=== PATIENT | female | born 1995 | race Caucasian/White ===

== ENCOUNTER 2022-06-05 01:50 | Emergency (ER) | payer MEDICAID ==
[~2022-06-05] VITALS: Ht 165.1 cm; Wt 79.4 kg
[2022-06-05 02:02] VITALS: BP 84/34
--- NOTE | 2022-06-05 02:30 | NUR ---
Labs collected sent to lab
--- NOTE | 2022-06-05 02:30 | NUR ---
MD Mcgraw at bedside examining pt.
--- NOTE | 2022-06-05 02:30 | NUR ---
c/o vaginal bleeding since 1800. per pt soaks 3 pads every 30 minutes. pt noted diaphoretic, and weak. states episode of syncope x 2.
--- NOTE | 2022-06-05 02:40 | NUR ---
Assisted ER Dr Mcgraw for vaginal exam. Heavy amount of bleeding and several clots removed. Pt tolerated procedure well.
[2022-06-05 03:02] LABS: ALBUMIN 3.5 g/dL (3.4-5.0); ANION GAP 11.7 (8-16); CARBON DIOXIDE 25.4 mmol/L (21-32); CREATININE 1.2 mg/dL (0.6-1.3); POTASSIUM 3.1 mmol/L (3.5-5.1); TOTAL BILIRUBIN 0.2 mg/dL (0.0-1.0)
[2022-06-05] MEDS ORDERED: NACL 0.9% 1,000 ML IV ONE (03:05)
[2022-06-05 03:09] LABS: BASOPHILS % (AUTO) 0.3 % (0.0-2.0); EOSINOPHILS # (AUTO) 0.2 K/uL (0-0.4); EOSINOPHILS % (AUTO) 1.9 % (0.0-4.0); HEMATOCRIT 39.8 % (36-48); HEMOGLOBIN 13.4 g/dL (12.0-16.0); LYMPHOCYTES # (AUTO) 3.6 K/uL (2.5-16.5); LYMPHOCYTES % (AUTO) 28.8 % (20.5-51.1); MEAN CORPUSCULAR HEMOGLOBIN 33 pg (27-31); MEAN CORPUSCULAR HGB CONC 34 g/dL (33-37); MEAN CORPUSCULAR VOLUME 96.4 fL (80-94); MONOCYTES # (AUTO) 0.6 K/uL (0.8-1.0); MONOCYTES % (AUTO) 4.7 % (1.7-9.3); NEUTROPHILS # (AUTO) 8.1 K/uL (1.8-7.7); NEUTROPHILS % (AUTO) 64.3 % (42.2-75.2); PLATELET COUNT (AUTO) 184 K/uL (140-450); RED BLOOD CELL COUNT(AUTO) 4.13 MIL/uL (4.20-5.40); RED CELL DISTRIBUTION WIDTH 12.5 % (11.6-13.7); WHITE BLOOD COUNT (AUTO) 12.6 K/uL (4.8-10.8)
--- NOTE | 2022-06-05 03:29 | NUR ---
Swabs collected sent to lab
--- NOTE | 2022-06-05 04:16 | NUR ---
Pt unable to void at this time. Attempted x2. MD Mcgraw made aware.
[2022-06-05] MEDS ORDERED: KETOROLAC 15 MG/ML VIAL IVP ONE (04:55)
[2022-06-05] MEDS ORDERED: KETOROLAC 15 MG/ML VIAL ONE (04:57)
--- NOTE | 2022-06-05 05:06 | NUR ---
Pt medicated for pain via IV as ordered by MD Mcgraw. Tolerated well.
[2022-06-05] MEDS ORDERED: IBUP-2218 PO (05:31)
[2022-06-05 05:59] LABS: BASOPHILS % (AUTO) 0.3 % (0.0-2.0); EOSINOPHILS % (AUTO) 0.3 % (0.0-4.0); HEMATOCRIT 33.6 % (36-48); HEMOGLOBIN 11.5 g/dL (12.0-16.0); LYMPHOCYTES # (AUTO) 1.5 K/uL (2.5-16.5); LYMPHOCYTES % (AUTO) 11.4 % (20.5-51.1); MEAN CORPUSCULAR HEMOGLOBIN 33 pg (27-31); MEAN CORPUSCULAR HGB CONC 34 g/dL (33-37); MEAN CORPUSCULAR VOLUME 96.4 fL (80-94); MONOCYTES # (AUTO) 0.3 K/uL (0.8-1.0); MONOCYTES % (AUTO) 2.6 % (1.7-9.3); NEUTROPHILS # (AUTO) 11.3 K/uL (1.8-7.7); NEUTROPHILS % (AUTO) 85.4 % (42.2-75.2); PLATELET COUNT (AUTO) 159 K/uL (140-450); RED BLOOD CELL COUNT(AUTO) 3.48 MIL/uL (4.20-5.40); RED CELL DISTRIBUTION WIDTH 12.7 % (11.6-13.7); WHITE BLOOD COUNT (AUTO) 13.3 K/uL (4.8-10.8)
--- NOTE | 2022-06-05 06:58 | NUR ---
Patient discharged with v/s stable. Written and verbal after care instructions given and explained. Patient verbalized understanding. Ambulatory with steady gait. All questions addressed prior to discharge. Advised to follow up with PMD.
[2022-06-05 07:01] VITALS: BP 115/67
== END 2022-06-05 07:01 | disposition home or self-care (01) ==
LOC: MED 01:50
DX: O03.4 Incomplete spontaneous abortion without complication (principal); Z20.822 Contact with and (suspected) exposure to COVID-19; Z79.899 Other long term (current) drug therapy
CPT/HCPCS: 36415; 76817; 80053; 83605; 84702; 85025; 86886; 86900; 86901; 87040; 87426; 96361; 96374; 99291; J1885; J7030; Q0092

== ENCOUNTER 2022-06-07 19:26 | Inpatient (IN) | payer MEDICAID ==
[~2022-06-07] VITALS: Ht 165.1 cm; Wt 61.2 kg
[~2022-06-07 19:26] MED LIST: IBUP-2218 PO
[2022-06-07 19:50] VITALS: BP 113/70
--- NOTE | 2022-06-07 20:02 | NUR ---
TO BED 2 FOLLOWING TRIAGE
--- NOTE | 2022-06-07 20:30 | NUR ---
Patient BIB by family from home. C/O vaginal bleeding x 2 days. Patient reported, had vaginal bleeding since Saturday, LMP 03/01/22, ~ 3 months (per patient), Patient seen by ERMD on 06/05/22. Dx Miscarriage. Patient didn't seen by CLINICAL NURSING PROFESSOR since, Patient had heavy vaginal bleeding since.
[2022-06-07 20:31] LABS: BASOPHILS % (AUTO) 0.1 % (0.0-2.0); EOSINOPHILS # (AUTO) 0.1 K/uL (0-0.4); EOSINOPHILS % (AUTO) 0.5 % (0.0-4.0); HEMATOCRIT 30.7 % (36-48); HEMOGLOBIN 10.6 g/dL (12.0-16.0); LYMPHOCYTES # (AUTO) 1.5 K/uL (2.5-16.5); LYMPHOCYTES % (AUTO) 12.7 % (20.5-51.1); MEAN CORPUSCULAR HEMOGLOBIN 33 pg (27-31); MEAN CORPUSCULAR HGB CONC 35 g/dL (33-37); MEAN CORPUSCULAR VOLUME 95.4 fL (80-94); MONOCYTES # (AUTO) 0.5 K/uL (0.8-1.0); MONOCYTES % (AUTO) 4.1 % (1.7-9.3); NEUTROPHILS # (AUTO) 9.9 K/uL (1.8-7.7); NEUTROPHILS % (AUTO) 82.6 % (42.2-75.2); PLATELET COUNT (AUTO) 159 K/uL (140-450); RED BLOOD CELL COUNT(AUTO) 3.22 MIL/uL (4.20-5.40); RED CELL DISTRIBUTION WIDTH 12.3 % (11.6-13.7)
--- NOTE | 2022-06-07 20:42 | NUR ---
Ultrasound at bedside.
--- NOTE | 2022-06-07 21:02 | NUR ---
Patient reported, had more cramping pain, 12/25, Dr. Malloyr notified.
[2022-06-07] MEDS ORDERED: KETOROLAC 60 MG/2 ML VIAL IM ONE ×2 (21:09→21:10)
--- NOTE | 2022-06-07 21:57 | NUR ---
urine sample collected and sent to lab.
[2022-06-07 22:03] LABS: APPEARANCE,URINE CLEAR (CLEAR); BILIRUBIN,URINE NEGATIVE (NEGATIVE); BLOOD, URINE 3+ (NEGATIVE); COLOR,URINE YELLOW (YELLOW); LEUKOCYTE ESTERASE ,URINE TRACE (NEGATIVE); NITRITE, URINE POSITIVE (NEGATIVE); UGLUCOSE NEGATIVE (NEGATIVE)
--- NOTE | 2022-06-07 22:10 | NUR ---
CPVID-19 swab collected and sent to lab.
[2022-06-07 22:14] LABS: RBC,URINE TOO NUMEROUS TO COUN /HPF (0-5); WBC,URINE 0-5 /HPF (0-5)
[2022-06-07] MEDS ORDERED: NACL 0.9% 1,000 ML IV ONE (22:40)
[2022-06-07] MEDS ORDERED: cefTRIAXone 1,000 MG VIAL ONE (22:44)
--- NOTE | 2022-06-07 23:10 | NUR ---
Patient will be admitted to care of Dr. Goins. Admited to TELE. Will go to room 105A. Belongings list completed. Report to TELE.
--- NOTE | 2022-06-07 23:45 | NUR ---
PATIENT ADMITTED FROM ED, CAME VIA [place], AMBULATORY, TRANSFERS TO BED FROM [facility] WITH STEADY GAIT. PATIENT IS ALERT AND ORIENTED X4, NO SIGNS OF DISTRESS NOTED, PATIENT DENIES PAIN UPON INITIAL ASSESSMENT. PATIENT CHIEF COMPLAINT OF VAGINAL BLEEDING THAT STARTED 06/05/22, CAME TO ED, WAS SENT HOME, CAME BACK TODAY FOR VAGINAL BLEEDING, HAS DIAGNOSIS OF INCOMPLETE AND UTI. PATIENT ORIENTED TO ROOM SETTING, MRSA DONE. ALL SAFETY MEASURES IN PLACE.
--- NOTE | 2022-06-08 02:10 | NUR ---
PATIENT ASLEEP, BREATHING EVEN AND NON LABORED ON ROOM AIR, NO SIGNS OF PAIN/DISCOMFORT NOTED. CALL LIGHT WITHIN REACH.
[2022-06-08 04:00] VITALS: BP 105/55
[2022-06-08] MEDS ORDERED: PIPERACILLIN/TAZOBACTAM 3.375 GM VIAL IV ONE (04:16)
[2022-06-08] MEDS: PIPERACILLIN/TAZOBACTAM 3.375 GM in DEXTROSE 5% 50 ML IV SCH ×3 (04:21→21:28)
--- NOTE | 2022-06-08 04:21 | NUR ---
SCHEDULED IV ANTIBIOTIC GIVEN ORDERED. PATIENT DENIES PAIN UPON ASSESSMENT, NO DISTRESS NOTED, CALL LIGHT WITHIN REACH.
[2022-06-08 06:46] LABS: BASOPHILS % (AUTO) 0.1 % (0.0-2.0); EOSINOPHILS # (AUTO) 0.1 K/uL (0-0.4); EOSINOPHILS % (AUTO) 1.2 % (0.0-4.0); HEMATOCRIT 27.5 % (36-48); HEMOGLOBIN 9.5 g/dL (12.0-16.0); LYMPHOCYTES # (AUTO) 2.9 K/uL (2.5-16.5); LYMPHOCYTES % (AUTO) 28.9 % (20.5-51.1); MEAN CORPUSCULAR HEMOGLOBIN 33 pg (27-31); MEAN CORPUSCULAR HGB CONC 35 g/dL (33-37); MEAN CORPUSCULAR VOLUME 95.6 fL (80-94); MONOCYTES # (AUTO) 0.6 K/uL (0.8-1.0); NEUTROPHILS # (AUTO) 6.4 K/uL (1.8-7.7); NEUTROPHILS % (AUTO) 63.8 % (42.2-75.2); PLATELET COUNT (AUTO) 152 K/uL (140-450); RED BLOOD CELL COUNT(AUTO) 2.87 MIL/uL (4.20-5.40); RED CELL DISTRIBUTION WIDTH 12.6 % (11.6-13.7)
--- NOTE | 2022-06-08 07:17 | NUR ---
ENDORSED PATIENT TO DAY NURSE GERRY FOR CONTINUITY OF CARE. PATIENT IN STABLE CONDITION.
--- NOTE | 2022-06-08 07:20 | NUR ---
RECEIVED P;T FROM [facility] RN, PT IS AWAKE, ALERT AND ORIENTED, ON ROOM AIR, LYING ON THE BED WITH SIDE RAILS UP AND CALL LIGHT WITHIN REACH, IV LINE NOTED ON THE RIGHT FOREARM G. 20 WITH NS INFUSING AT 100ML/HR, INTACT, NO SIGN OF DISTRESS NOTED AND DENIES PAIN AT THIS TIME.
[2022-06-08 08:00] VITALS: BP 101/62
[2022-06-08 08:01] LABS: ANION GAP 13.6 (8-16); CREATININE 0.9 mg/dL (0.6-1.3); POTASSIUM 3.6 mmol/L (3.5-5.1)
--- NOTE | 2022-06-08 09:01 | NUR ---
PATIENT HAS BEEN SCREENED AND CATEGORIZED LOW NUTRITION RISK. PATIENT WILL BE SEEN WITHIN 7 DAYS OF ADMISSION. 06/14/[address] ROD PHIPPS RD
[2022-06-08] MEDS ORDERED: ACETAMINOPHEN 325 MG TAB PO PRN (09:30)
[2022-06-08] MEDS ORDERED: ONDANSETRON 4 MG/2 ML VIAL IVP PRN (09:30)
[2022-06-08] MEDS ORDERED: HYDROcodone/APAP 7.5/325 MG 1 TAB PO PRN (09:30)
[2022-06-08 10:21] LABS: BASOPHILS % (AUTO) 0.2 % (0.0-2.0); EOSINOPHILS # (AUTO) 0.1 K/uL (0-0.4); EOSINOPHILS % (AUTO) 1.2 % (0.0-4.0); HEMATOCRIT 26.2 % (36-48); LYMPHOCYTES # (AUTO) 2.2 K/uL (2.5-16.5); LYMPHOCYTES % (AUTO) 24.6 % (20.5-51.1); MEAN CORPUSCULAR HEMOGLOBIN 33 pg (27-31); MEAN CORPUSCULAR HGB CONC 35 g/dL (33-37); MEAN CORPUSCULAR VOLUME 95.7 fL (80-94); MONOCYTES # (AUTO) 0.4 K/uL (0.8-1.0); MONOCYTES % (AUTO) 5.1 % (1.7-9.3); NEUTROPHILS # (AUTO) 6.1 K/uL (1.8-7.7); NEUTROPHILS % (AUTO) 68.9 % (42.2-75.2); PLATELET COUNT (AUTO) 148 K/uL (140-450); RED BLOOD CELL COUNT(AUTO) 2.73 MIL/uL (4.20-5.40); RED CELL DISTRIBUTION WIDTH 12.7 % (11.6-13.7); WHITE BLOOD COUNT (AUTO) 8.8 K/uL (4.8-10.8)
[2022-06-08 10:44] LABS: PROTHROMBIN TIME 11.6 secs (10.8-13.4)
[2022-06-08 10:53] LABS: AMYLASE 37 U/L (25-115); CHOL/HDL RATIO 2.7 (1-4.5); FREE T4 (FREE THYROXINE) 1.04 ng/dL (0.76-1.46); HDL CHOLESTEROL 44 mg/dL (40-60); LDL (CALC) 58 mg/dL (60-100); LIPASE 90 U/L (73-393); MAGNESIUM 1.8 mg/dL (1.8-2.4); THYROID STIMULATING HORMONE 0.83 uIU/mL (0.34-3.74); TRIGLYCERIDES 76 mg/dL (30-150)
[2022-06-08 12:00] VITALS: BP 103/54
[2022-06-08 16:00] VITALS: BP 101/48
--- NOTE | 2022-06-08 19:34 | NUR ---
ENDORSED PT TO NIGHT RN FOR CONTINUITY OF CARE, PT IS STABLE AT THIS TIME.
--- NOTE | 2022-06-08 19:35 | NUR ---
RECEIVED REPORT FROM DAY SHIFT NURSE GERRY FOR CONTINUITY OF CARE. PT A/A/O, AMBULATORY, ABLE TO MAKE NEEDS KNOWN. RESPIRATIONS EVEN AND UNLABORED ON RA. ON MOTHER BABY RN. PT ON NPO. NPO SIGNS ON THE DOOR. PT AWARE. SKIN INTACT, WARM AND DRY TO TOUCH. ENDORSED THAT PT WAS SAYING INTENT OF LEAVING BECAUSE SHE HASN'T SEEN DR GIMENEZ YET, NO SHOWER AND NPO SINCE YESTERDAY. POC DISCUSSED. GAVE REPORT TO COVERING NURSE PADILLA. CALL LIGHT WITHIN REACH. SAFETY PRECAUTIONS IN PLACE.
[2022-06-08 20:00] VITALS: BP 113/58
--- NOTE | 2022-06-08 20:37 | NUR ---
FF-UP WITH AMMY IF HE WILL COME AND SEE THE PT PER PT REQUEST. PT WAS ALSO CONCERNING THAT SHE HAS BEEN ON NPO SINCE YESTERDAY MORNING. PER DR GIMENEZ HE WILL SEE THE PT SOON SHE CAN. PT MADE AWARE. PT VERBALIZED UNDERSTANDING.
[2022-06-08] MEDS ORDERED: DOCUSATE SODIUM 100 MG GELCAP PO SCH (21:00)
--- NOTE | 2022-06-08 23:25 | NUR ---
DR GIMENEZ AT BEDSIDE, CHECKED AND SEEN PT.
[2022-06-08 23:45] VITALS: BP 115/66
[2022-06-09] VITALS: BP 115/66
--- NOTE | 2022-06-09 00:40 | NUR ---
PT DISCHARGED HOME. PT WALKED TO [facility]. PICKED UP BY BF. DC PAPERS DISCUSSED WITH PT. PT VERBALIZED UNDERSTANDING. REMOVED IV CATHETER TIP INTACT. REMOVED ID WRIST BAND AND TELE MONITOR. ALL BELONGINGS TAKEN UPON DC. PT IS STABLE.
[2022-06-09] MEDS ORDERED: PANTOPRAZOLE 40 MG INJ VIAL IVP SCH (09:00)
== END 2022-06-09 00:40 | disposition home or self-care (01) | DRG 564 ==
LOC: MED 19:26 → MTU 22:40
DX: O03.9 Complete or unspecified spontaneous abortion without complication (principal); D64.9 Anemia, unspecified; Z20.822 Contact with and (suspected) exposure to COVID-19
CPT/HCPCS: 36415; 71045; 76856; 80048; 81001; 82150; 83036; 83605; 83690; 83735; 83880; 84100; 84439; 84443; 84484; 84702; 85025; 85610; 85730; 87040; 87081; 87086; 96365; 96372; 99285; J0696; J1885; J2543; J7060; Q0092

== ENCOUNTER 2022-11-21 04:20 | Inpatient (IN) | payer MEDICAID ==
[~2022-11-21] VITALS: Ht 162.6 cm; Wt 75.3 kg
[2022-11-21 04:31] VITALS: BP 115/73; PULSE 63; RESP 17; TEMP 97; O2SAT 98
[2022-11-21 05:38] LABS: APPEARANCE,URINE CLEAR (CLEAR); BILIRUBIN,URINE 1+ (NEGATIVE); BLOOD, URINE 3+ (NEGATIVE); COLOR,URINE YELLOW (YELLOW); LEUKOCYTE ESTERASE ,URINE TRACE (NEGATIVE); NITRITE, URINE POSITIVE (NEGATIVE); PH,URINE 6.5 (5.0-9.0); PROTEIN,URINE 3+ (NEGATIVE); UGLUCOSE TRACE (NEGATIVE); UROBILINOGEN,URINE 0.2 EU/dL (0.2 - 1)
[2022-11-21 05:40] LABS: BASOPHILS % (AUTO) 0.5 % (0.0-2.0); EOSINOPHILS # (AUTO) 0.1 K/uL (0-0.4); EOSINOPHILS % (AUTO) 1.6 % (0.0-4.0); HEMATOCRIT 36.1 % (36-48); HEMOGLOBIN 11.9 g/dL (12.0-16.0); LYMPHOCYTES # (AUTO) 1.7 K/uL (2.5-16.5); LYMPHOCYTES % (AUTO) 19.6 % (20.5-51.1); MEAN CORPUSCULAR HEMOGLOBIN 27 pg (27-31); MEAN CORPUSCULAR HGB CONC 33 g/dL (33-37); MEAN CORPUSCULAR VOLUME 81.1 fL (80-94); MONOCYTES # (AUTO) 0.4 K/uL (0.8-1.0); MONOCYTES % (AUTO) 4.4 % (1.7-9.3); NEUTROPHILS # (AUTO) 6.5 K/uL (1.8-7.7); NEUTROPHILS % (AUTO) 73.9 % (42.2-75.2); PLATELET COUNT (AUTO) 216 K/uL (140-450); RED BLOOD CELL COUNT(AUTO) 4.46 MIL/uL (4.20-5.40); RED CELL DISTRIBUTION WIDTH 21.9 % (11.6-13.7); WHITE BLOOD COUNT (AUTO) 8.7 K/uL (4.8-10.8)
[2022-11-21 05:40] LABS: ICTOTEST POSITIVE (NEGATIVE); RBC,URINE TOO NUMEROUS TO COUN /HPF (0-5)
[2022-11-21 05:41] LABS: BACTERIA,URINE 10-30 (MOD) /HPF (None Seen); MUCUS,URINE 1+ /LPF (None Seen); SQUAMOUS EPITHELIAL CELL,UR 0-3 (FEW) /LPF (0-3 (FEW))
[2022-11-21] MEDS ORDERED: MORPHINE SULFATE 4 MG/ML SYR IM ONE (06:05)
[2022-11-21] MEDS ORDERED: fentaNYL citrate 0.05 MG/ML VIAL ONE ×2 (06:17→12:46)
[2022-11-21] MEDS ORDERED: fentaNYL citrate 0.05 MG/ML VIAL IVP ONE ×2 (06:25→08:20)
[2022-11-21] MEDS ORDERED: NACL 0.9% 1,000 ML IV ONE ×2 (06:25→08:20)
[2022-11-21] MEDS ORDERED: cefTRIAXone 1,000 MG VIAL ONE (06:37)
[2022-11-21 08:00] VITALS: O2SAT 100
[2022-11-21] MEDS ORDERED: MISOPROSTOL 100 MCG TAB RC SCH (08:00)
[2022-11-21] MEDS ORDERED: METHYLERGONOVINE 0.2 MG/ML AMP ONE (08:59)
[2022-11-21] MEDS ORDERED: METHYLERGONOVINE 0.2 MG/ML AMP IM SCH (09:02)
[2022-11-21 09:03] LABS: BASOPHILS % (AUTO) 0.1 % (0.0-2.0); EOSINOPHILS % (AUTO) 0.2 % (0.0-4.0); HEMATOCRIT 27.9 % (36-48); LYMPHOCYTES # (AUTO) 1.5 K/uL (2.5-16.5); LYMPHOCYTES % (AUTO) 12.3 % (20.5-51.1); MEAN CORPUSCULAR HEMOGLOBIN 27 pg (27-31); MEAN CORPUSCULAR HGB CONC 32 g/dL (33-37); MEAN CORPUSCULAR VOLUME 81.7 fL (80-94); MONOCYTES # (AUTO) 0.3 K/uL (0.8-1.0); MONOCYTES % (AUTO) 2.7 % (1.7-9.3); NEUTROPHILS # (AUTO) 10.5 K/uL (1.8-7.7); NEUTROPHILS % (AUTO) 84.7 % (42.2-75.2); PLATELET COUNT (AUTO) 184 K/uL (140-450); RED BLOOD CELL COUNT(AUTO) 3.42 MIL/uL (4.20-5.40); RED CELL DISTRIBUTION WIDTH 21.9 % (11.6-13.7); WHITE BLOOD COUNT (AUTO) 12.4 K/uL (4.8-10.8)
[2022-11-21] MEDS ORDERED: KETOROLAC 30 MG/ML VIAL IVP SCH (10:10)
[2022-11-21] MEDS ORDERED: ONDANSETRON 4 MG/2 ML VIAL IVP PRN ×2 (10:10→14:40)
[2022-11-21] MEDS ORDERED: PROPOFOL 200 MG/20 ML VIAL IV ONE ×2 (12:46→14:00)
[2022-11-21] MEDS ORDERED: MORPHINE SULFATE 10 MG/ML VIAL IVP PRN (13:05)
[2022-11-21] MEDS ORDERED: ONDANSETRON 4 MG/2 ML VIAL ONE (14:16)
[2022-11-21] MEDS ORDERED: DEXAMETHASONE 4 MG/ML VIAL ONE (14:31)
[2022-11-21] MEDS ORDERED: MEPERIDINE 25 MG/ML SYR IVP PRN (14:40)
[2022-11-21] MEDS ORDERED: LACTATED RINGERS 1,000 ML IV SCH (14:40)
[2022-11-21] MEDS ORDERED: HYDROmorphone 1 MG/ML AMP IVP PRN (14:40)
[2022-11-21 16:40] VITALS: BP 113/71; PULSE 61; PULSE 64; RESP 16; TEMP 97.5; O2SAT 98
[2022-11-21 16:51] VITALS: BP 113/71; PULSE 64; RESP 16; TEMP 97.5
[2022-11-21 17:01] VITALS: BP 113/71; PULSE 64; RESP 16; TEMP 97.5
== END 2022-11-21 17:55 | disposition home or self-care (01) | DRG 543 ==
LOC: MED 04:20 → MMU 07:54 → MTU 09:26
PROVIDERS: ADMIT Obstetrics & Gynecology; ATTEND Obstetrics & Gynecology
PROC: 10D17ZZ Extraction of Products of Conception, Retained, Via Natural or Artificial Opening (ICD-10-PCS; principal; 2022-11-21 12:30)
DX: O03.4 Incomplete spontaneous abortion without complication (principal); D62 Acute posthemorrhagic anemia
CPT/HCPCS: 36415; 76817; 81001; 83605; 84702; 85018; 85025; 86886; 86900; 86901; 86920; 87040; 87086; 88305; 96374; 99285; J0696; J1100; J1885; J2210; J2405; J2704; J3010; J7120; Q0092